=== PATIENT | male | born 1955 | race Caucasian/White ===

== ENCOUNTER 2017-04-23 09:32 | Observation (INO) ==
[2017-04-23] MEDS ORDERED: ASPIRIN 325 MG TABLET PO STA (09:56)
[2017-04-23] MEDS ORDERED: NITROGLYCERIN SL 0.4 MG TABLET SL PRN (09:56)
[2017-04-23] MEDS ORDERED: ONDANSETRON 4 MG/2 ML VIAL IV PRN ×2 (09:56→12:23)
[2017-04-23] MEDS ORDERED: MORPHINE 2 MG/1 ML SYRINGE IV PRN (09:56)
[2017-04-23] MEDS ORDERED: NITROGLYCERIN 2% OINT 1 INCH/GM PACK TOP STA (09:56)
[2017-04-23] MEDS ORDERED: ENOXAPARIN 100 MG/ML SYRINGE SUBCUT STA (09:56)
--- NOTE | 2017-04-23 10:00 | EKG Report ---
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
--- NOTE | 2017-04-23 10:02 | Emergency Department Note ---
Annie Wilder Mantricia, am scribing for, and in the presence of, Nabeel Granger MD 10:00. IBárbara James D, MD, personally performed the services described in this documentation, ascribed by Kennedy Valencia in my presence, and it is both accurate and complete . Arrival - Arrival Chief Complaint: Weakness Stated Complaint: fells tired all the time,has stints ED Nursing Triage Note: C/O FEELING TIRED FOR CLIVE TWO MONTHS. PT STATES HE FELT LIKE THIS WHEN HE HAD STENTS PLACED. PT DENIES CHEST PAIN. +SOB Mode of Arrival: Ambulatory Limitations: No Limitations Source: Patient Time Seen by Provider: 04/23/17 09:52 - History of Present Illness HPI Narrative: Pt is a 61 y/o white male arriving to ED with c/o fatigue and weakness that onset a month ago. He states that he has become more tired and SOB in the past few days. Pt denies chest pain but reports diaphoresis. 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 He has a PMHx of DM and HTN and has 8 stents placed. He reports no other complaints to ED. Onset (ago): month(s) Consistency: constant Allergies/Adverse Reactions: Allergies Allergy/AdvReac Type Severity Reaction Status Date / Time NEREYDA Inhibitors Allergy ANAPHYLAXIS Verified 04/23/17 09:44 Home Medications: Home Medications Medication Instructions Recorded Confirmed Type Aspirin EC Tab 81 mg PO DAILY 04/23/17 04/23/17 History Celecoxib 200 mg PO DAILY 04/23/17 04/23/17 History Cetirizine Tab [ZyrTEC Tab] 10 mg PO DAILY PRN 04/23/17 04/23/17 History Clopidogrel [Plavix] 75 mg PO DAILY 04/23/17 04/23/17 History Ferrous Sulfate 325 mg PO DAILY 04/23/17 04/23/17 History Hydrocodone/Acetaminophen [Lortab 1 each PO Q6H PRN 04/23/17 04/23/17 History 10-325 mg Tablet] Insulin Aspart Prot/Insuln Asp 90 unit SUBCUT QPM 04/23/17 04/23/17 History [NovoLOG Mix 70-30 FlexPen] Insulin Aspart Prot/Insuln Asp 100 unit SUBCUT QAM 04/23/17 04/23/17 History [NovoLOG Mix 70-30 FlexPen] Multivitamin [Multivitamins] 1 each PO DAILY 04/23/17 04/23/17 History PARoxetine [Paxil] 20 mg PO DAILY 04/23/17 04/23/17 History Pantoprazole Tab [Protonix Tab] 40 mg PO DAILY 04/23/17 04/23/17 History Solifenacin [Vesicare] 5 mg PO DAILY 04/23/17 04/23/17 History Tramadol HCl [Tramadol Tab] 50 mg PO Q6H PRN 04/23/17 04/23/17 History Valsartan 160 mg PO DAILY 04/23/17 04/23/17 History Review of System - Review of System 12 point system: reviewed and no additional remarkable complaints except as stated - Review of System Eyes: Absent: discharge, pain Cardiovascular: Present: dyspnea on exertion, other (fatigue). Absent: chest pain Gastrointestinal: Absent: abdominal pain, nausea, vomiting, diarrhea Musculoskeletal: Absent: arm pain, back pain, leg pain, neck pain Neurological: Present: weakness Medical,Surgical,& Family Hx - Medical History Cardio: History of: Hypertension, [place] Endocrine: History of: Diabetes Mellitus (IDDM) Musculoskeletal: History of: Musculoskeletal Problems (ARTHRITIS) - Surgical History Cardiac Surgeries: Sugical HX of: Cardiac Catheterization (WITH 8 STENTS) - Family History Family History: Reports;: Family Cancer, Family Diabetes, Family Heart Disease, Family Hypertension - Social History Smoking Status: Never smoker Frequency of Alcohol Use: None Type of Drug Use: None Exam Physical Examination: GENERAL: This is a well-nourished, well-developed male in no apparent distress. VITAL SIGNS: HEENT: Head is normocephalic and atraumatic. Pupils are equally round and reactive to light. Extraocular movement are intact. Oropharynx is benign with moist mucous membranes. NECK: Neck is soft and supple without tenderness. There are no masses. There is no lymphadenopathy. LUNGS: Lungs are clear to auscultation bilaterally. Chest rises symmetrically. There is no chest wall tenderness. CV: Heart is regular rate and rhythm without murmurs, rubs, or gallops. ABDOMEN: Abdomen is soft, non-tender to palpation. There are no abnormal masses palpated. There is no organomegaly. Bowel sounds are present and active. SKIN: Skin is warm and dry. No rash. EXTREMITIES: Patient has full range of motion without tenderness. There is no pedal edema. NEUROLOGIC: Awake, alert, and oriented x4. Cranial nerves II through XII are grossly intact. There are no motorsensory deficits. PSYCHIATRIC: Normal affect. Normal mood. Vital Signs: Vital Signs Temperature 97.4 F L 04/23/17 09:44 Pulse Rate 56 L 04/23/17 09:44 Respiratory Rate 18 04/23/17 10:24 Blood Pressure 125/65 04/23/17 09:44 O2 Sat by Pulse Oximetry 96 04/23/17 09:44 Course Course Narrative: Patient was given aspirin, Lovenox, morphine and Zofran in the emergency department. - Consultations Consultation #1: Discussed with Dr. Tompkins. Patient will be admitted to his service. Time: 11:42 Results - Labs CBC & BMP: 04/23/17 10:16 04/23/17 10:16 Lab Results: I have reviewed the patients labs Labs: Laboratory Tests 04/23/17 10:16 Troponin I < 0.015 - EKG EKG results: interpreted by ERMD - Impressions EKG: Sinus bradycardia with a rate of 52, left bundle branch block, no further interpretation possible. - Diagnostic Findings Procedure: Chest x-ray: image reviewed by me (Cardiomegaly, no increased pulmonary markings, no pleural effusions.) Disposition Clinical Impression: ACS (acute coronary syndrome), Diabetes mellitus, Essential hypertension, Coronary artery disease, Left bundle branch block, Fatigue Case discussed with: patient Disposition: Disch To Home/Self Care Condition: Stable
[2017-04-23 10:28] LABS: Basophils % 0.3 % (0.0-0.8); Eosinophils # 0.4 10*3/uL (0.0-0.87); Eosinophils % 3.5 % (0.00-10.9); Hematocrit 40.9 VOL% (42.0-52.0); Hemoglobin 13.5 GM/DL (14.0-18.0); Immature Granulocytes % 0.4 %; Immature Granulocytes Absolute 0.05 #; Lymphocytes # 2.1 10*3/uL (1.4-4.0); Lymphocytes % 18.2 % (21.2-54.2); Mean Corpuscular Hemoglobin 29 PG (27-34); Mean Corpuscular Volume 86.5 FL (87-102); Mean Platelet Volume 10.4 FL (9.6-12.0); Monocytes # 1.1 10*3/uL (0.11-0.8); Monocytes % 9.1 % (1.7-12.7); Neutrophils % 68.5 % (38.7-73.9); Platelet Count 356 T/CUMM (130-400); Red Blood Count 4.73 MC/CUMM (3.8-5.5); Red Cell Distribution Width 13.8 % (9.3-17.3); White Blood Count 11.7 T/CUMM (4-12)
[2017-04-23 10:39] LABS: PT Patient Result 10.3 SECS; Partial Thromboplastin Time 21.2 SECS (0-40)
[2017-04-23] MEDS ORDERED: NITROGLYCERIN 2% OINT 1 INCH/GM PACK TOP ONE (10:42)
[2017-04-23] MEDS ORDERED: ONDANSETRON 4 MG/2 ML VIAL ONE (10:42)
[2017-04-23] MEDS ORDERED: ENOXAPARIN 100 MG/ML SYRINGE SUBCUT ONE (10:42)
[2017-04-23] MEDS ORDERED: ENOXAPARIN 30 MG/0.3 ML SYRINGE ONE (10:43)
[2017-04-23] MEDS ORDERED: NITROGLYCERIN SL 0.4 MG TABLET SL ONE (10:43)
[2017-04-23] MEDS ORDERED: MORPHINE 2 MG/1 ML SYRINGE ONE (10:43)
[2017-04-23] MEDS ORDERED: ASPIRIN 325 MG TABLET ONE (10:43)
--- NOTE | 2017-04-23 10:43 | XRay Report ---
XR chest 2V Date: 04/23/2017 9:56 AM History: Chest pain Comparison: 04/29/2014 Technique: PA and lateral chest Findings: The heart is borderline in size with small cardiac fat pads. The lungs and mediastinum are stable in appearance. Minimal degenerative changes are noted. Impression: No acute cardiopulmonary pathology identified. PROCEDURE INTERPRETED AT [facility] DEPARTMENT OF RADIOLOGY Final Report Signed by: Dr. Opal Schaefer
[2017-04-23 10:58] LABS: Alanine Aminotransferase 37 U/L (16-61); Alkaline Phosphatase 67 U/L (45-117); Aspartate Amino Transferase 20 U/L (0-37); Bilirubin,Total < 0.39 MG/DL (0.2-1.0); Blood Urea Nitrogen 24 MG/DL (7-18); Calcium 9.7 MG/DL (8.5-10.1); Glucose 180 MG/DL (74-106); Magnesium 2.1 MG/DL (1.8-2.4); Osmolality,Calculated 283.7 MOS/KG (273-304); Potassium 4.8 MMOL/L (3.5-5.1); Sodium 138 MMOL/L (136-145); Total Protein 7.3 G/DL (6.4-8.3)
[2017-04-23] MEDS ORDERED: MAGNESIUM SULF RIDER 4 GM in PREMIX 1 EACH IV PRN (12:13)
[2017-04-23] MEDS ORDERED: MAGNESIUM SULF RIDER 2 GM in PREMIX 1 EACH IV PRN ×2 (12:13→16:42)
[2017-04-23] MEDS ORDERED: BISACODYL 5 MG TABLET PO PRN (12:23)
[2017-04-23] MEDS ORDERED: ZALEPLON 5 MG CAPSULE PO PRN (12:23)
[2017-04-23] MEDS ORDERED: ACETAMINOPHEN 325 MG TABLET PO PRN (12:23)
[2017-04-23 12:27] LABS: Apearance,Urine CLEAR (Clear); Bilirubin,Urine Negative (Negative); Blood, Urine Negative (Negative); Glucose,Urine (UA) 50 mg/dL (Negative); Hyaline Casts,Urine 1 /LPF (0-3); Ketones,Urine Negative (Negative); Mucus,Urine Few /LPF (Occasional); Nitrite,Urine Negative (Negative); Protein,Urine 30 MG/DL; RBC,Urine <1 /HPF (0-4); Urine Color Yellow (Yellow); Urine Specific Gravity 1.028 (1.001-1.035); Urine Urobilinogen < 2.0 EU/DL (0.2-1.0); WBC,Urine 1 /HPF (0-6)
[2017-04-23] MEDS ORDERED: POTASSIUM CHLORIDE 20 MEQ TABLET PO PRN (12:41)
[2017-04-23 12:46] LABS: Barbiturates Screen,Urine Negative (Negative); Benzodiazepines Screen,Urine Negative (Negative); Cannabinoid Screen,Urine Negative (Negative); Opiate Screen,Urine Positive (Negative); Phencyclidine Screen,Urine Negative (Negative)
--- NOTE | 2017-04-23 12:51 | Cardiology History & Physical ---
<Ayah Boateng E - Last Filed: 04/23/17 12:54> Assessment and Plan - Time spent with patient Time spent with patient: Greater than 30 minutes (due to assessment, plan, and documentation) (1) Dyspnea on exertion Status: Acute Assessment and plan: See plan of care listed below. Current Visit: Yes (2) Coronary artery disease Status: Chronic Assessment and plan: See plan of care listed below. Current Visit: Yes (3) Essential hypertension Status: Acute Assessment and plan: See plan of care listed below. Current Visit: Yes (4) Dyslipidemia Status: Chronic Assessment and plan: See plan of care listed below. Current Visit: Yes (5) Diabetes mellitus Status: Chronic Assessment and plan: See plan of care listed below. Current Visit: Yes (6) Left bundle branch block Status: Chronic Assessment and plan: See plan of care listed below. Current Visit: Yes (7) Obstructive sleep apnea Status: Chronic Assessment and plan: See plan of care listed below. Current Visit: Yes (8) GERD (gastroesophageal reflux disease) Status: Chronic Assessment and plan: See plan of care listed below. 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 Babb PCP: Dr. Ahmadi ALLERGIC TO NEREYDA INHIBITORS HISTORY: Mr. Viera is a 61 year old male with a history of coronary artery disease, hypertension, diabetes, hyper lipidemia, obstructive sleep apnea , chronic left bundle branch block, arthritis, gastroesophageal reflux disease, former tobacco use. He has three-vessel CAD and has undergone multiple stent procedures. He is status post proximal LAD stent, main trunk circumflex stent, OM1 and OM 2 stent at [employer] February 11, [address] Ndiaye. He is status post proximal RCA stent April 20, 2011. He is status post proximal LAD stent for in- stent restenosis on April 29, 2014. He is also status post mid circumflex stent and first diagonal angioplasty June 02, 2014. Last echocardiogram was January and revealed ejection fraction 60%, mildly dilated left atrium, moderate MR, moderate AI, mild TR, PAP 40 mmHg. SUMMARY: Mr. Viera presented to the emergency room today with complaints of progressive dyspnea on exertion. His , Latasha, is at the bedside and reports that this has been ongoing for at least 2-3 months. He tells me he gives out easily and his frequently short of breath at work. On Saturday, he did not have a nap during the day and subsequently had to take off work yesterday and slept off and on most of the day. His tells me that he has the same symptoms leading up to every heart cath where he has received stents. He denies any chest pain, palpitations, dizziness, lightheadedness, nausea, vomiting. He does admit to diaphoresis but reports that he sweats a lot on a regular basis. Initial troponin is negative. EKG shows chronic left bundle branch block. We will admit him to the telemetry floor for further evaluation and possible left heart catheterization. ASSESSMENT/PLAN: 1. DYSPNEA ON EXERTION - Patient presents with symptoms suspicious of angina, similar presentation to previous hospitalizations where he has required stent placement. Initial troponin is negative. EKG shows chronic LBBB. We will admit to telemetry unit. Dr. Mullins to follow with further plan and addendum. 2. CORONARY ARTERY DISEASE - He has three-vessel CAD and has undergone multiple stent procedures. He is status post proximal LAD stent, main trunk circumflex stent, OM1 and OM 2 stent at [employer] February 11, [address] Ndiaye. He is status post proximal RCA stent April 20, 2011. He is status post proximal LAD stent for in-stent restenosis on April 29, 2014. He is also status post mid circumflex stent and first diagonal angioplasty June 02, 2014. 3. HYPERTENSION - Currently well controlled. Will continue home medications, monitor, and adjust accordingly during hospitalization. 4. HYPERLIPIDEMIA - He was started on Crestor 40mg PO Daily at his last visit with Dr. Coronel. We will check lipid panel in the morning and continue lipid lowering agent. 5. DIABETES - Suspect this is uncontrolled. He admits his glucose has been running between the 200s-300s lately. Will check hemoglobin A1C. Start accuchecks ACHS with sliding scale insulin. 6. CHRONIC LEFT BUNDLE BRANCH BLOCK - Chronic. 7. OBSTRUCTIVE SLEEP APNEA - Continue CPAP while sleeping. 8. GERD - Continue PPI. 9. FATIGUE - Suspect this may be related to CAD. Will admit patient to telemetry for further evaluation. Home Medications Medication Instructions Recorded Confirmed Type Aspirin EC Tab 81 mg PO DAILY 04/23/17 04/23/17 History Celecoxib 200 mg PO DAILY 04/23/17 04/23/17 History Cetirizine Tab [ZyrTEC Tab] 10 mg PO DAILY PRN 04/23/17 04/23/17 History Clopidogrel [Plavix] 75 mg PO DAILY 04/23/17 04/23/17 History Ferrous Sulfate 325 mg PO DAILY 04/23/17 04/23/17 History Hydrocodone/Acetaminophen [Lortab 1 each PO Q6H PRN 04/23/17 04/23/17 History 10-325 mg Tablet] Insulin Aspart Prot/Insuln Asp 90 unit SUBCUT QPM 04/23/17 04/23/17 History [NovoLOG Mix 70-30 FlexPen] Insulin Aspart Prot/Insuln Asp 100 unit SUBCUT QAM 04/23/17 04/23/17 History [NovoLOG Mix 70-30 FlexPen] Multivitamin [Multivitamins] 1 each PO DAILY 04/23/17 04/23/17 History PARoxetine [Paxil] 20 mg PO DAILY 04/23/17 04/23/17 History Pantoprazole Tab [Protonix Tab] 40 mg PO DAILY 04/23/17 04/23/17 History Solifenacin [Vesicare] 5 mg PO DAILY 04/23/17 04/23/17 History Tramadol HCl [Tramadol Tab] 50 mg PO Q6H PRN 04/23/17 04/23/17 History Valsartan 160 mg PO DAILY 04/23/17 04/23/17 History Allergies Allergy/AdvReac Type Severity Reaction Status Date / Time NEREYDA Inhibitors Allergy ANAPHYLAXIS Verified 04/23/17 09:44 Review of systems: - Constitutional: Present: fatigue, As per HPI. Absent: anorexia, chills, daytime sleepiness, excessive sweating, fever(s), frequent falls, headache(s), increased appetite, lethargy, malaise, night sweats, stops breathing during sleep, weakness, weight gain, weight loss. - EENT Eyes: Present: As per HPI. Absent: blurry vision, diplopia, loss of vision Ears: Present: As per HPI. Absent: decreased hearing, ear discharge, ear pain Nose, mouth and throat: Present: As per HPI. Absent: dysphagia, epistaxis, headache(s), hoarseness, lip swelling, nasal congestion, neck mass, neck pain, sinus pressure, sore throat, throat swelling, tongue swelling, vertigo - Cardiovascular: Present: dyspnea, dyspnea on exertion, as per HPI. Absent: chest pain at rest, chest pain with activity, edema, claudication, diaphoresis, radiating jaw, neck or arm pain, lightheadedness, orthopnea, palpitations, PND - Respiratory: Present: dyspnea, dyspnea on exertion, as per HPI. Absent: cough , hemoptysis, wheezing, snoring, pain on inspiration - Gastrointestinal: Present: As per HPI. Absent: abdominal pain, bloating, change in bowel habits, constipation, diarrhea, heartburn, hematemesis, hematochezia, loose stools, melena, nausea, vomiting - Genitourinary: Present: As per HPI. Absent: difficulty urinating, dysuria, flank pain, hematuria, nocturia, urinary frequency, urinary incontinence - Musculoskeletal: Present: As per HPI. Absent: arthralgias, back pain, joint swelling, limited range of motion, muscle cramps, muscle weakness, myalgias - Neurological: Present: As per HPI. Absent: abnormal gait, abnormal speech, behavioral changes, confusion, convulsions, disequilibrium, dizziness, focal weakness, frequent falls, headache(s), memory loss, numbness, paresthesias, radicular pain, syncope, tremor(s) - Psychiatric: Present: As per HPI. Absent: anxiety, confusion, depression, panic attacks - Endocrine: Present: fatigue, As per HPI. Absent: cold intolerance, heat intolerance, polydipsia, polyphagia - Hematologic/Lymphatic: Present: As per HPI. Absent: easy bleeding, easy bruising, lymphadenopathy Medical,Surgical,& Family Hx - Medical History Cardio: History of: CAD, Hypertension, MD, Cardiovascular Problems (chronic LBBB ) Psychological: History of: Depression Endocrine: History of: Diabetes Mellitus (IDDM), Dyslipidemia Respiratory: History of: Obstructive Sleep Apnea Gastrointestinal: History of: GERD Musculoskeletal: History of: Musculoskeletal Problems (ARTHRITIS) - Surgical History Cardiac Surgeries: Sugical HX of: Cardiac Catheterization (WITH 8 STENTS) - Family History Family History: Reports;: Family Cancer, Family Diabetes, Family Heart Disease, Family Hypertension - Social History Smoking Status: Never smoker Frequency of Alcohol Use: None Type of Drug Use: None Marital Status: Lives With:: Spouse Functional capacity: independent ambulation Cardiology Physical Exam - Constitutional Vitals: Vital Signs Temp Pulse Resp BP Pulse Ox 97.4 F L 56 L 18 125/65 96 04/23/17 09:44 04/23/17 09:44 04/23/17 10:24 04/23/17 09:44 04/23/17 09:44 Intake and Output 04/22/17 04/23/17 04/23/17 22:59 06:59 14:59 Other: Weight 279 lb Patient Weight 04/24/17 06:59 Weight 279 lb Exam: General appearance: Pleasant and cooperative. Overweight, no acute distress. - Head Head exam: Present: normal inspection, normocephalic, atraumatic. Absent: hematoma, laceration - Eye Eye exam: Present: EOMI. Absent: conjunctival injection, nystagmus, periorbital swelling, scleral icterus, laceration to eyelids Pupils: Present: PERRL. Absent: constricted, dilated, fixed, irregular, unequal - ENT ENT exam: Present: normal exam, normal external ear exam - Neck Neck exam: Present: normal inspection. Absent: lymphadenopathy, meningismus, tenderness, thyromegaly - Respiratory Respiratory exam: Present: clear to auscultation bilaterally. Absent: accessory muscle use, chest wall tenderness - Cardiovascular Cardiovascular exam: Present: regular rate and rhythm. Absent: carotid bruit, gallop, JVD, rubs, murmur - GI/Abdominal GI/Abdominal exam: Present: normal bowel sounds, soft. Absent: distended, firm , guarding, hernia, mass, tenderness, rebound. - Extremities Exam Extremities exam: Present: normal inspection, normal capillary refill. Upper extremity pulses 2+. Lower extremity pulses 2+. Absent: calf tenderness, edema -Musculoskeletal Exam Musculoskeletal: Present: No Fluid Collection, No Pain, Normal Range of Motion - Back Exam Back exam: Present: normal inspection. Absent: muscle spasm, vertebral tenderness - Neurological Exam Neurological exam: Present: alert, oriented X3, grossly intact without resting or essential tremor - Psychiatric Psychiatric exam: Present: normal affect, normal mood - Skin Skin exam: Present: normal color, warm, dry, intact. Absent: cyanosis, diaphoretic, rash, urticaria Result/EKG - Labs CBC & BMP: 04/23/17 10:16 04/23/17 10:16 Lab Results: I have reviewed the past 24 hour labs Labs: Laboratory Results - last 24 hr 04/23/17 04/23/17 04/23/17 10:16 10:16 10:16 WBC RBC Hgb Hct MCV MCH MCHC RDW Plt Count MPV Neut % (Auto) Lymph % (Auto) Branch % (Auto) Eos % (Auto) Baso % (Auto) Neut # (Auto) Lymph # (Auto) Branch # (Auto) Eos # (Auto) Baso # (Auto) Immature Gran % Nucleated RBC % Immature Gran # Nucleated RBCs # INR 1.0 PT Patient/Control Mix 10.3 Circ Anticoag PTT 21.2 Sodium 138 Potassium 4.8 Chloride 105 Carbon Dioxide 26 Anion Gap 11.8 BUN 24 H Creatinine 1.00 GFR Calculation 112 BUN/Creatinine Ratio 24.00 H Glucose 180 H Calculated Osmolality 283.7 Calcium 9.7 Magnesium 2.1 Total Bilirubin < 0.39 AST 20 ALT 37 Alkaline Phosphatase 67 Troponin I Total Protein 7.3 Albumin 4.0 Globulin 3.3 Albumin/Globulin Ratio 1.2 Lipase 109.0 Urine Color Yellow Urine Appearance Clear Urine pH 5.0 Ur Specific Pointblank 1.028 Urine Protein 30 Urine Glucose (UA) 50 Urine Ketones Negative Urine Blood Negative Urine Nitrate Negative Urine Bilirubin Negative Urine Urobilinogen < 2.0 H Urine Leukocytes Negative Urine RBC <1 Urine WBC 1 Hyaline Casts 1 Urine Mucus Few Ur Culture Indicated? Not indicated 04/23/17 04/23/17 10:16 10:16 WBC 11.7 RBC 4.73 Hgb 13.5 L Hct 40.9 L MCV 86.5 L MCH 29 MCHC 33.0 RDW 13.8 Plt Count 356 MPV 10.4 Neut % (Auto) 68.5 Lymph % (Auto) 18.2 L Branch % (Auto) 9.1 Eos % (Auto) 3.5 Baso % (Auto) 0.3 Neut # (Auto) 8.0 H Lymph # (Auto) 2.1 Branch # (Auto) 1.1 H Eos # (Auto) 0.4 Baso # (Auto) 0.0 Immature Gran % 0.4 Nucleated RBC % 0.0 Immature Gran # 0.05 Nucleated RBCs # 0.00 INR PT Patient/Control Mix Circ Anticoag PTT Sodium Potassium Chloride Carbon Dioxide Anion Gap BUN Creatinine GFR Calculation BUN/Creatinine Ratio Glucose Calculated Osmolality Calcium Magnesium Total Bilirubin AST ALT Alkaline Phosphatase Troponin I < 0.015 Total Protein Albumin Globulin Albumin/Globulin Ratio Lipase Urine Color Urine Appearance Urine pH Ur Specific Pointblank Urine Protein Urine Glucose (UA) Urine Ketones Urine Blood Urine Nitrate Urine Bilirubin Urine Urobilinogen Urine Leukocytes Urine RBC Urine WBC Hyaline Casts Urine Mucus Ur Culture Indicated? - EKG EKG results: interpreted by me (chronic left bundle branch block) <French Mullins Cecilio - Last Filed: 04/23/17 16:42> History of Present Illness History of present illness: Mr. Viera is a 61 year old male who was admitted through the emergency room. I have also personally interviewed and examined this patient and discussed this case with Ayah Boateng NP. This patient's have progressive symptomatology similar to what he has had prior to his previous stenting. With his aggressive history of coronary artery disease and requiring intervention as our plans will be carried out heart catheterization tomorrow with possible PCI. I discussed cardiac catheterization with the patient and his reviewing the case procedure that would be carried out as well as the benefits options and risk. I discussed cardiac catheterization and percutaneous coronary intervention with the patient and available family. I reviewed with them the indications for the procedure and the basis of how the procedure would be carried out. I also reviewed with them the risk of the procedure which include but not necessarily limited to access site bleeding, bruising, pain, swelling or vascular injury that may require emergency vascular surgery, blood transfusion, or thrombin injection. Also discussed the possibility of stroke, myocardial infarction, arrhythmia which may require electrocardioversion, and the possibility of dye reaction that would require medical therapy. Also discussed the possibility of coronary artery injury, ruptured, closure or perforation that may require emergency bypass surgery. We also discussed the possibility of from a major complication. They voice understanding and agree to proceed. We will plan on carrying this out in the morning. Cardiology Physical Exam - Constitutional Vitals: Vital Signs Temp Pulse Resp BP Pulse Ox 97.3 F L 47 L 18 136/58 97 04/23/17 15:43 04/23/17 15:43 04/23/17 15:43 04/23/17 15:43 04/23/17 15:43 Intake and Output 04/23/17 04/23/17 04/23/17 07:59 15:59 23:59 Other: Weight 126.099 kg Patient Weight 04/23/17 23:59 Weight 126.099 kg Result/EKG - Labs CBC & BMP: 04/23/17 10:16 04/23/17 10:16 Labs: Laboratory Results - last 24 hr 04/23/17 04/23/17 04/23/17 10:16 10:16 10:16 WBC RBC Hgb Hct MCV MCH MCHC RDW Plt Count MPV Neut % (Auto) Lymph % (Auto) Branch % (Auto) Eos % (Auto) Baso % (Auto) Neut # (Auto) Lymph # (Auto) Branch # (Auto) Eos # (Auto) Baso # (Auto) Immature Gran % Nucleated RBC % Immature Gran # Nucleated RBCs # INR 1.0 PT Patient/Control Mix 10.3 Circ Anticoag PTT 21.2 Sodium 138 Potassium 4.8 Chloride 105 Carbon Dioxide 26 Anion Gap 11.8 BUN 24 H Creatinine 1.00 GFR Calculation 112 BUN/Creatinine Ratio 24.00 H Glucose 180 H Calculated Osmolality 283.7 Calcium 9.7 Magnesium 2.1 Total Bilirubin < 0.39 AST 20 ALT 37 Alkaline Phosphatase 67 Total Creatine Kinase CK-MB (CK-2) Troponin I Total Protein 7.3 Albumin 4.0 Globulin 3.3 Albumin/Globulin Ratio 1.2 Lipase 109.0 Urine Color Yellow Urine Appearance Clear Urine pH 5.0 Ur Specific Pointblank 1.028 Urine Protein 30 Urine Glucose (UA) 50 Urine Ketones Negative Urine Blood Negative Urine Nitrate Negative Urine Bilirubin Negative Urine Urobilinogen < 2.0 H Urine Leukocytes Negative Urine RBC <1 Urine WBC 1 Hyaline Casts 1 Urine Mucus Few Ur Culture Indicated? Not indicated Urine Opiates Screen Ur Barbiturates Screen Ur Phencyclidine Scrn U Amphetamine/Methamph U Benzodiazepines Scrn U Cocaine Metab Screen U Cannabinoids Screen 04/23/17 04/23/17 04/23/17 10:16 10:16 10:16 WBC 11.7 RBC 4.73 Hgb 13.5 L Hct 40.9 L MCV 86.5 L MCH 29 MCHC 33.0 RDW 13.8 Plt Count 356 MPV 10.4 Neut % (Auto) 68.5 Lymph % (Auto) 18.2 L Branch % (Auto) 9.1 Eos % (Auto) 3.5 Baso % (Auto) 0.3 Neut # (Auto) 8.0 H Lymph # (Auto) 2.1 Branch # (Auto) 1.1 H Eos # (Auto) 0.4 Baso # (Auto) 0.0 Immature Gran % 0.4 Nucleated RBC % 0.0 Immature Gran # 0.05 Nucleated RBCs # 0.00 INR PT Patient/Control Mix Circ Anticoag PTT Sodium Potassium Chloride Carbon Dioxide Anion Gap BUN Creatinine GFR Calculation BUN/Creatinine Ratio Glucose Calculated Osmolality Calcium Magnesium Total Bilirubin AST ALT Alkaline Phosphatase Total Creatine Kinase CK-MB (CK-2) Troponin I < 0.015 Total Protein Albumin Globulin Albumin/Globulin Ratio Lipase Urine Color Urine Appearance Urine pH Ur Specific Pointblank Urine Protein Urine Glucose (UA) Urine Ketones Urine Blood Urine Nitrate Urine Bilirubin Urine Urobilinogen Urine Leukocytes Urine RBC Urine WBC Hyaline Casts Urine Mucus Ur Culture Indicated? Urine Opiates Screen Positive H Ur Barbiturates Screen Negative Ur Phencyclidine Scrn Negative U Amphetamine/Methamph Negative U Benzodiazepines Scrn Negative U Cocaine Metab Screen Negative U Cannabinoids Screen Negative 04/23/17 10:16 WBC RBC Hgb Hct MCV MCH MCHC RDW Plt Count MPV Neut % (Auto) Lymph % (Auto) Branch % (Auto) Eos % (Auto) Baso % (Auto) Neut # (Auto) Lymph # (Auto) Branch # (Auto) Eos # (Auto) Baso # (Auto) Immature Gran % Nucleated RBC % Immature Gran # Nucleated RBCs # INR PT Patient/Control Mix Circ Anticoag PTT Sodium Potassium Chloride Carbon Dioxide Anion Gap BUN Creatinine GFR Calculation BUN/Creatinine Ratio Glucose Calculated Osmolality Calcium Magnesium Total Bilirubin AST ALT Alkaline Phosphatase Total Creatine Kinase 200 CK-MB (CK-2) 1.8 Troponin I < 0.015 Total Protein Albumin Globulin Albumin/Globulin Ratio Lipase Urine Color Urine Appearance Urine pH Ur Specific Pointblank Urine Protein Urine Glucose (UA) Urine Ketones Urine Blood Urine Nitrate Urine Bilirubin Urine Urobilinogen Urine Leukocytes Urine RBC Urine WBC Hyaline Casts Urine Mucus Ur Culture Indicated? Urine Opiates Screen Ur Barbiturates Screen Ur Phencyclidine Scrn U Amphetamine/Methamph U Benzodiazepines Scrn U Cocaine Metab Screen U Cannabinoids Screen
[2017-04-23 13:30] LABS: Troponin I Only < 0.015 NG/ML (0.00-0.045)
--- NOTE | 2017-04-23 13:50 | EKG Report ---
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
[2017-04-23] MEDS ORDERED: GLUCAGON 1 MG VIAL IM PRN (15:24)
[2017-04-23] MEDS ORDERED: DEXTROSE 50% 25 GM/50 ML VIAL IV PRN (15:24)
[2017-04-23] MEDS: PANTOPRAZOLE 40 MG TABLET PO SCH (15:49)
[2017-04-23] MEDS ORDERED: POTASSIUM CHLORIDE RIDER 10 MEQ in PREMIX 1 EACH IV PRN (16:42)
[2017-04-23] MEDS: INSULIN LISPRO 100 UNIT/ML SUBCUT SCH ×2 (18:33→22:08)
[2017-04-23 20:50] LABS: Troponin I Only < 0.015 NG/ML (0.00-0.045)
[2017-04-23] MEDS ORDERED: ROSUVASTATIN 20 MG TABLET PO SCH (21:00)
[2017-04-24 05:02] LABS: Basophils % 0.4 % (0.0-0.8); Eosinophils # 0.4 10*3/uL (0.0-0.87); Eosinophils % 3.6 % (0.00-10.9); Hematocrit 39.7 VOL% (42.0-52.0); Hemoglobin 12.9 GM/DL (14.0-18.0); Immature Granulocytes % 0.5 %; Immature Granulocytes Absolute 0.05 #; Lymphocytes # 2.3 10*3/uL (1.4-4.0); Lymphocytes % 20.8 % (21.2-54.2); Mean Corpuscular HGB Conc 32.5 GM/DL (32-36); Mean Corpuscular Hemoglobin 28 PG (27-34); Mean Corpuscular Volume 87.1 FL (87-102); Mean Platelet Volume 10.6 FL (9.6-12.0); Monocytes # 1.2 10*3/uL (0.11-0.8); Neutrophils % 63.7 % (38.7-73.9); Platelet Count 330 T/CUMM (130-400); Red Blood Count 4.56 MC/CUMM (3.8-5.5); Red Cell Distribution Width 13.9 % (9.3-17.3)
[2017-04-24 05:35] LABS: Albumin 3.6 G/DL (3.4-5.0); Bilirubin,Total 0.4 MG/DL (0.2-1.0); Calcium 8.8 MG/DL (8.5-10.1); Osmolality,Calculated 283.5 MOS/KG (273-304); Potassium 4.2 MMOL/L (3.5-5.1); Risk Ratio 4.47; Total Protein 6.7 G/DL (6.4-8.3); VLDL CHOLESTEROL 62.2 MG/DL
[2017-04-24 05:42] LABS: Troponin I Only < 0.015 NG/ML (0.00-0.045)
[2017-04-24] MEDS ORDERED: diphenhydrAMINE CAP 25 MG CAPSULE PO ONE (06:00)
[2017-04-24] MEDS ORDERED: SODIUM CHLORIDE 0.9% 1,000 ML IV SCH (06:00)
[2017-04-24] MEDS ORDERED: DIAZEPAM 5 MG TABLET PO ONE (06:00)
--- NOTE | 2017-04-24 06:22 | EKG Report ---
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
--- NOTE | 2017-04-24 06:23 | Cardiology Progress Note ---
Assessment and Plan (1) Bradycardia Status: Acute Assessment and plan: Now not sure the duration of his bradycardia but certainly question whether this may contribute to his fatigue and dyspnea on exertion. He is not on medications to slow his heart rates down. This may need further evaluation. Current Visit: Yes (2) Essential hypertension Status: Acute Current Visit: Yes (3) Coronary artery disease Status: Chronic Assessment and plan: Patient has had multiple stents carried out previously. He is now having symptoms of fatigue and dyspnea that are consistent with prior symptomatology prior to interventions. Current Visit: Yes (4) Left bundle branch block Status: Chronic Assessment and plan: This is chronic. Current Visit: Yes (5) Fatigue Status: Acute Assessment and plan: Fatigue and dyspnea that now developed and are consistent with his symptomatology prior to previous interventions of his coronary arteries. He is for catheterization possible intervention today. Current Visit: Yes (6) Dyspnea on exertion Status: Acute Assessment and plan: This is consistent with prior symptomatology of angina and symptomatology that has had previous to other interventions. Current Visit: Yes (7) Dyslipidemia Status: Chronic Assessment and plan: His lipids are borderline. After catheterization depending what we find we may need to increase his medications. Current Visit: Yes (8) Obstructive sleep apnea Status: Chronic Assessment and plan: Patient is on CPAP. Current Visit: Yes Cardiology - PN: Subj Interval history: The patient is doing well this morning. He had a good night. He denies any chest pain or shortness of breath today. His laboratory is stable his chemistry stable. His cardiac enzymes have been nondetectable troponins. His CPKs and MB fractions are unremarkable. Telemetry reveals sinus rhythm but remains bradycardic. He is not on beta-steffany or calcium channel steffany or other medications to slow his heart rates. Need to check his thyroids. Again I have discussed the patient's cardiac catheterization and possible intervention with he and his . Reviewed the indication procedure be carried out the risk. They voiced understanding we will proceed this morning. Exam (Progress Note) - Constitutional Vitals: Period Temp Pulse Resp BP Sys/Sherman Pulse Ox Last 24 Hr 97.3 F-98.1 F 47-60 16-20 116-137/58-71 93-98 Exam: General appearance: Obese, no acute distress HEENT exam: normal inspection, atraumatic Neck exam: normal inspection no JVD. No carotid bruit. Trachea is in midline Respiratory/lungs exam: clear to auscultation bilaterally good air movement. Cardiovascular exam: regular rhythm but bradycardic, no murmur or gallop or rub. No precordial lift. Chest wall exam: nontender GI/Abdominal exam: normal bowel sounds, soft, nontender, no abdominal bruits or pulsatile masses. Extremeties/musculoskeletal: normal inspection without edema or cyanosis. Neurological exam: alert, oriented X3, no focal deficits Psychiatric exam: normal affect, normal mood. Cognitive function is grossly normal. Skin exam: normal color, warm Result/EKG - Labs CBC & BMP: 04/24/17 04:15 04/24/17 04:15 Lab Results: I have reviewed the past 24 hour labs Labs: Laboratory Results - last 24 hr 04/23/17 04/23/17 04/23/17 10:16 10:16 10:16 WBC RBC Hgb Hct MCV MCH MCHC RDW Plt Count MPV Neut % (Auto) Lymph % (Auto) [place] % (Auto) Eos % (Auto) Baso % (Auto) Neut # (Auto) Lymph # (Auto) [place] # (Auto) Eos # (Auto) Baso # (Auto) Immature Gran % Nucleated RBC % Immature Gran # Nucleated RBCs # INR 1.0 PT Patient/Control Mix 10.3 Circ Anticoag PTT 21.2 Sodium 138 Potassium 4.8 Chloride 105 Carbon Dioxide 26 Anion Gap 11.8 BUN 24 H Creatinine 1.00 GFR Calculation 112 BUN/Creatinine Ratio 24.00 H Glucose 180 H POC Glucose Hemoglobin A1c Calculated Osmolality 283.7 Calcium 9.7 Magnesium 2.1 Total Bilirubin < 0.39 AST 20 ALT 37 Alkaline Phosphatase 67 Total Creatine Kinase CK-MB (CK-2) Troponin I Total Protein 7.3 Albumin 4.0 Globulin 3.3 Albumin/Globulin Ratio 1.2 Triglycerides Cholesterol LDL Cholesterol VLDL Cholesterol HDL Cholesterol Heart Disease Risk Ratio Lipase 109.0 Urine Color Yellow Urine Appearance Clear Urine pH 5.0 Ur Specific [place] 1.028 Urine Protein 30 Urine Glucose (UA) 50 Urine Ketones Negative Urine Blood Negative Urine Nitrate Negative Urine Bilirubin Negative Urine Urobilinogen < 2.0 H Urine Leukocytes Negative Urine RBC <1 Urine WBC 1 Hyaline Casts 1 Urine Mucus Few Ur Culture Indicated? Not indicated Urine Opiates Screen Ur Barbiturates Screen Ur Phencyclidine Scrn U Amphetamine/Methamph U Benzodiazepines Scrn U Cocaine Metab Screen U Cannabinoids Screen 04/23/17 04/23/17 04/23/17 10:16 10:16 10:16 WBC 11.7 RBC 4.73 Hgb 13.5 L Hct 40.9 L MCV 86.5 L MCH 29 MCHC 33.0 RDW 13.8 Plt Count 356 MPV 10.4 Neut % (Auto) 68.5 Lymph % (Auto) 18.2 L [place] % (Auto) 9.1 Eos % (Auto) 3.5 Baso % (Auto) 0.3 Neut # (Auto) 8.0 H Lymph # (Auto) 2.1 [place] # (Auto) 1.1 H Eos # (Auto) 0.4 Baso # (Auto) 0.0 Immature Gran % 0.4 Nucleated RBC % 0.0 Immature Gran # 0.05 Nucleated RBCs # 0.00 INR PT Patient/Control Mix Circ Anticoag PTT Sodium Potassium Chloride Carbon Dioxide Anion Gap BUN Creatinine GFR Calculation BUN/Creatinine Ratio Glucose POC Glucose Hemoglobin A1c Calculated Osmolality Calcium Magnesium Total Bilirubin AST ALT Alkaline Phosphatase Total Creatine Kinase CK-MB (CK-2) Troponin I < 0.015 Total Protein Albumin Globulin Albumin/Globulin Ratio Triglycerides Cholesterol LDL Cholesterol VLDL Cholesterol HDL Cholesterol Heart Disease Risk Ratio Lipase Urine Color Urine Appearance Urine pH Ur Specific [place] Urine Protein Urine Glucose (UA) Urine Ketones Urine Blood Urine Nitrate Urine Bilirubin Urine Urobilinogen Urine Leukocytes Urine RBC Urine WBC Hyaline Casts Urine Mucus Ur Culture Indicated? Urine Opiates Screen Positive H Ur Barbiturates Screen Negative Ur Phencyclidine Scrn Negative U Amphetamine/Methamph Negative U Benzodiazepines Scrn Negative U Cocaine Metab Screen Negative U Cannabinoids Screen Negative 04/23/17 04/23/17 04/23/17 10:16 13:06 17:25 WBC RBC Hgb Hct MCV MCH MCHC RDW Plt Count MPV Neut % (Auto) Lymph % (Auto) [place] % (Auto) Eos % (Auto) Baso % (Auto) Neut # (Auto) Lymph # (Auto) [place] # (Auto) Eos # (Auto) Baso # (Auto) Immature Gran % Nucleated RBC % Immature Gran # Nucleated RBCs # INR PT Patient/Control Mix Circ Anticoag PTT Sodium Potassium Chloride Carbon Dioxide Anion Gap BUN Creatinine GFR Calculation BUN/Creatinine Ratio Glucose POC Glucose 138 H 137 H Hemoglobin A1c Calculated Osmolality Calcium Magnesium Total Bilirubin AST ALT Alkaline Phosphatase Total Creatine Kinase 200 CK-MB (CK-2) 1.8 Troponin I < 0.015 Total Protein Albumin Globulin Albumin/Globulin Ratio Triglycerides Cholesterol LDL Cholesterol VLDL Cholesterol HDL Cholesterol Heart Disease Risk Ratio Lipase Urine Color Urine Appearance Urine pH Ur Specific [place] Urine Protein Urine Glucose (UA) Urine Ketones Urine Blood Urine Nitrate Urine Bilirubin Urine Urobilinogen Urine Leukocytes Urine RBC Urine WBC Hyaline Casts Urine Mucus Ur Culture Indicated? Urine Opiates Screen Ur Barbiturates Screen Ur Phencyclidine Scrn U Amphetamine/Methamph U Benzodiazepines Scrn U Cocaine Metab Screen U Cannabinoids Screen 04/23/17 04/23/17 04/23/17 20:10 20:27 Unknown WBC RBC Hgb Hct MCV MCH MCHC RDW Plt Count MPV Neut % (Auto) Lymph % (Auto) [place] % (Auto) Eos % (Auto) Baso % (Auto) Neut # (Auto) Lymph # (Auto) [place] # (Auto) Eos # (Auto) Baso # (Auto) Immature Gran % Nucleated RBC % Immature Gran # Nucleated RBCs # INR PT Patient/Control Mix Circ Anticoag PTT Sodium Potassium Chloride Carbon Dioxide Anion Gap BUN Creatinine GFR Calculation BUN/Creatinine Ratio Glucose POC Glucose 184 H Hemoglobin A1c 10.8 H Calculated Osmolality Calcium Magnesium Total Bilirubin AST ALT Alkaline Phosphatase Total Creatine Kinase 154 D CK-MB (CK-2) 1.6 Troponin I < 0.015 Total Protein Albumin Globulin Albumin/Globulin Ratio Triglycerides Cholesterol LDL Cholesterol VLDL Cholesterol HDL Cholesterol Heart Disease Risk Ratio Lipase Urine Color Urine Appearance Urine pH Ur Specific [place] Urine Protein Urine Glucose (UA) Urine Ketones Urine Blood Urine Nitrate Urine Bilirubin Urine Urobilinogen Urine Leukocytes Urine RBC Urine WBC Hyaline Casts Urine Mucus Ur Culture Indicated? Urine Opiates Screen Ur Barbiturates Screen Ur Phencyclidine Scrn U Amphetamine/Methamph U Benzodiazepines Scrn U Cocaine Metab Screen U Cannabinoids Screen 04/24/17 04/24/17 04/24/17 04:15 04:15 04:15 WBC 11.0 RBC 4.56 Hgb 12.9 L Hct 39.7 L MCV 87.1 MCH 28 MCHC 32.5 RDW 13.9 Plt Count 330 MPV 10.6 Neut % (Auto) 63.7 Lymph % (Auto) 20.8 L [place] % (Auto) 11.0 Eos % (Auto) 3.6 Baso % (Auto) 0.4 Neut # (Auto) 7.0 Lymph # (Auto) 2.3 [place] # (Auto) 1.2 H Eos # (Auto) 0.4 Baso # (Auto) 0.0 Immature Gran % 0.5 Nucleated RBC % 0.0 Immature Gran # 0.05 Nucleated RBCs # 0.00 INR PT Patient/Control Mix Circ Anticoag PTT Sodium 139 Potassium 4.2 Chloride 103 Carbon Dioxide 28 Anion Gap 12.2 BUN 21 H Creatinine 1.00 GFR Calculation 112 BUN/Creatinine Ratio 21.00 H Glucose 171 H POC Glucose Hemoglobin A1c Calculated Osmolality 283.5 Calcium 8.8 Magnesium Total Bilirubin 0.40 AST 23 ALT 36 Alkaline Phosphatase 60 Total Creatine Kinase 178 CK-MB (CK-2) 2.1 Troponin I < 0.015 Total Protein 6.7 Albumin 3.6 Globulin 3.1 Albumin/Globulin Ratio 1.1 Triglycerides 311 H Cholesterol 134 LDL Cholesterol 78.0 VLDL Cholesterol 62.2 HDL Cholesterol 30 L Heart Disease Risk Ratio 4.47 Lipase Urine Color Urine Appearance Urine pH Ur Specific [place] Urine Protein Urine Glucose (UA) Urine Ketones Urine Blood Urine Nitrate Urine Bilirubin Urine Urobilinogen Urine Leukocytes Urine RBC Urine WBC Hyaline Casts Urine Mucus Ur Culture Indicated? Urine Opiates Screen Ur Barbiturates Screen Ur Phencyclidine Scrn U Amphetamine/Methamph U Benzodiazepines Scrn U Cocaine Metab Screen U Cannabinoids Screen - Impressions Impressions: Telemetry sinus bradycardia. ECG with sinus rhythm/sinus bradycardia with left bundle branch block.
--- NOTE | 2017-04-24 06:32 | History and Physical Update ---
Sedation H&P Update - History and Physical H&P was reviewed, the patient examined and there: are no changes in the patients condition since last H&P was completed. - Dictation Physical: refer to H&P completed by admitting physician - Physical Exam Mental Status: alert and oriented Heart: regular rate and rhythm Lung: clear to auscultation Abdomen: within normal limits Vitals: within normal limits History and Physical Changes: None - Sedation Plan for Sedation: moderate Patient Consent: Procedure disscussed with patient and patinet has consented., Risks and benefits were discussed with patient,including infection,, bleeding, injury to surrounding structures, seizure, temporary nerve, Patient understands and accepts potential risks/benefits and agrees to, proceed. ASA Class: III Airway Assessment: Class III: Soft palate, base of uvula visible
[2017-04-24 06:47] LABS: Free T4 (Free Thyroxine) 0.8 NG/DL (0.76-1.46); Thyroid Stimulating Hormone 4.3 uIU/ml (0.358-3.74)
[2017-04-24] MEDS: PANTOPRAZOLE 40 MG TABLET PO SCH ×2 (07:02→17:35)
[2017-04-24] MEDS ORDERED: MIDAZOLAM 2 MG/2 ML VIAL ONE (07:24)
[2017-04-24] MEDS ORDERED: fentaNYL 100 MCG/2 ML VIAL ONE (07:24)
[2017-04-24] MEDS ORDERED: LIDOCAINE 1% 20 ML VIAL ONE (07:26)
--- NOTE | 2017-04-24 07:55 | Operative Note ---
Date of procedure: 04/24/17 Procedure Preformed: Left heart catheterization with right and left coronary angiography. Surgeon / Physician: French Mullins Horse Buyer: Denisha Scott Post-op diagnosis: same (Fatigue with history of coronary artery disease with patent coronary arteries and stents.) Findings: Patent coronary arteries and stents. Specimens: none sent Estimated blood loss: minimal Condition: stable Anesthesia: local, conscious sedation Disposition: floor
--- NOTE | 2017-04-24 08:02 | Cardiac Catheterization ---
Date of Procedure:: 04/24/17 Pre-op Diagnosis: Patient coronary disease now with fatigue symptoms similar to pre-stenting and intervention. Post-op diagnosis: same (Fatigue with history of coronary artery disease with patent coronary arteries and stents.) Procedure: LEFT HEART CATHERIZATION History: 61-year-old man who has a history of having coronary disease and multiple stents placed. Typical his symptomatology is that of fatigability and dyspnea on exertion as well as occasional angina. He presented having progressive fatigability and dyspnea for the last several weeks. Since this is his anginal equivalent cardiac catheterization carried out. Pre-Op diagnosis: Known coronary disease with prior intervention and he is anginal equivalent symptomatology. Postoperative diagnosis: Patent coronary arteries and stents. Do not see etiology from a coronary artery disease standpoint to account for symptomatology. Procedures: 1. Left heart catheterization. 2. Left ventricular angiogram. 3. Selective left and right coronary angiograms. 4. Right common femoral artery angiogram with Angio-Seal hemostasis. Equipment: 6 [place]ic arterial sheath, 6 Icelandic diagnostic pigtail catheter, JL4 and JR4 diagnostic catheters. A 6 [place]ic Angio-Seal hemostatic device. Medications: Preoperative Benadryl and Valium given by mouth. Lidocaine 1% local anesthesia 10 mls administered by myself. Intraprocedure patient received Versed 2 mgs IVP, fentanyl 100 mcg IVP. Complications: None immediate. Contrast: Omnipaque 108 milliliters. Description of procedure: After informed consent the patient was given preoperative medications and brought to the catheterization laboratory where their right groin was prepped and draped in usual fashion. IV sedation was then obtained after which local anesthesia was administered at the right groin over the right common femoral artery. Using modified Seldinger technique the right common femoral artery was cannulated with 6 [place] arterial sheath placed. The pigtail catheter was then advanced through the sheath in a retrograde approach through the aorta to the aortic valve. The catheter was advanced through the aortic valve where left ventricular pressures were measured. The catheter was then pulled back into the aortic root and pressures measured. The catheter was then advanced across the aortic valve into the left ventricle where left ventricular angiogram was obtained in the right anterior oblique view. The pigtail catheter was then removed. The JL4 diagnostic coronary catheter was then advanced through the sheath in a retrograde approach and used to cannulate the left coronary artery of which angiograms were obtained in multiple projections. This catheter was then removed. The JR 4 diagnostic coronary catheter was then advanced retrograde through the aorta and used to cannulate the right coronary artery of which angiograms were obtained in multiple projections. Angiograms were then reviewed. The right coronary catheter was pulled back into the sheath where a right common femoral artery angiogram was obtained with Angio-Seal hemostasis then obtained of this vessel. There were no immediate complications. Hemodynamic data: LV 126/27 , EDP 31 ; AO root 126/63 , mean 83 . Left ventricular angiogram: Left ventricle is normal size with ejection fraction around 50% with some anterior wall hypokinesis. There is no significant mitral valve regurgitation noted. Left main coronary artery angiogram: Left main coronary is widely patent. Bifurcates LAD and circumflex arteries. Left anterior descending artery angiogram: The LAD is medium large size vessel proximally. It extends to the posterior apical region. The first diagonal branch is a small medium caliber vessel with small second diagonal branch is small medium caliber third diagonal branch. The LAD mid stent is widely patent. There is otherwise diffuse luminal irregularities with less than 20% stenosis. The first diagonal may have 50% ostial stenosis. Circumflex artery angiogram: Circumflex arteries a medium large size vessel. The first obtuse marginal branch is a medium caliber long vessel. Second obtuse marginal branch is a terminal branch and is medium caliber. There are stents noted in the mid circumflex artery prior to the takeoff the first obtuse marginal branch with stents extending into the proximal first obtuse marginal branch and in the circumflex artery past this takeoff. The stents are patent. There is less than 20% stenosis in the circumflex artery proper obtuse marginal branches. Right coronary artery angiogram: RCA is a medium large size vessel and dominant. What is the acute marginal branch is a medium caliber vessel long covering a large area of the distal posterior ventricular wall. The true PDA is small caliber and short. Posterior lateral branches beyond this are small- caliber vessels with a small caliber AV node artery. There is diffuse luminal irregularities. The proximal RCA stent is patent. Mid vessel there is luminal irregularities less than 40% stenosis. The distal RCA is widely patent. Right common femoral artery angiogram: Right comfort is widely patent as is the proximal portion of superficial coronary profundus branch. Successful Angio- Seal hemostasis. Impression: 1. Left ventricle is normal size with ejection of 50% with some anterior wall hypokinesis. 2. LVEDP is severely elevated. 3. There is no gradient across the aortic valve. 4. No sent mitral valve regurgitation noted. 5. Left main coronary is widely patent. 6. LAD has diffuse luminal irregularities less than 20% stenosis with the first diagonal having ostial 50% stenosis. Mid LAD stent is patent. 7. Circumflex artery is nondominant with diffuse luminal irregularities with mid 20% stenosis. The stents on the surface are widely patent. 8. RCA is dominant vessel with a proximal stent widely patent. Less than 40% mid stenosis. 9. Right comfort is widely patent with successful Angio-Seal hemostasis. Discussion: Patient post procedure will be monitored. Patient is to continue his risk factor modification look for other etiologies of dyspnea. Implants: None Anesthesia: local, moderate conscious sedation Surgeon / Physician: French Mullins Construction Job Titles: other (Denisha Scott RN) Estimated blood loss: minimal Specimens: none sent Condition: stable Disposition: floor - Medications / Follow-up
[2017-04-24] MEDS ORDERED: CLOPIDOGREL 75 MG TABLET PO SCH (09:00)
[2017-04-24] MEDS ORDERED: PARoxetine 20 MG TABLET PO SCH (09:00)
[2017-04-24] MEDS ORDERED: SOLIFENACIN 5 MG TABLET PO SCH (09:00)
[2017-04-24] MEDS ORDERED: ASPIRIN EC 81 MG TABLET PO SCH (09:00)
[2017-04-24] MEDS ORDERED: FERROUS SULFATE 325 MG TABLET PO SCH (09:00)
[2017-04-24] MEDS ORDERED: CELECOXIB 200 MG CAPSULE PO SCH (09:00)
[2017-04-24] MEDS ORDERED: MULTIVITAMIN (CENTRUM) TABLET PO SCH (09:00)
[2017-04-24] MEDS ORDERED: VALSARTAN 160 MG TABLET PO SCH (09:00)
--- NOTE | 2017-04-24 10:40 | Discharge Summary ---
<Yumi Kennedy - Last Filed: 04/24/17 14:13> Hospital Course - Hospital Course Hospital Course: Recovery Assistant: Dr. Coronel PCP: Dr. Kai Ernandez Patient is admitted through the emergency room with complaint of fatigue and malaise and shortness of breath that he felt was similar to what it had prior to stenting of his coronary arteries. His cardiac enzymes were nondetectable troponins. His ECG without acute changes but with sinus rhythm with bradycardia with heart rates in the low 50s and upper 40s. He has a chronic left bundle branch block. The patient underwent cardiac catheterization with the finding that his stents were widely patent. His ejection fraction around 50%. No specific abnormalities to account for his symptomatology. His LVEDP was moderately severely elevated. The patient is H&H was slightly diminished but in reviewing prior H&H it is unchanged. He his TSH was mildly increased but his T4 was normal. His chemistries were fairly unremarkable. He is creatinine was stable. His BUN was up a little bit. His lipids are borderline. His urinalysis did not reveal any abnormalities. He is done well post catheterization without complaints or issues. His groin is stable. Bedrest is up and groin has remained stable post ambulation. We reviewed his catheterization findings and the recommendation he follow-up with Dr. Ahmadi and Dr. Coronel. He needs a special follow-up for his dyspnea fatigue as well as his elevated LVEDP. Follow with Dr. Coronel in 3 weeks. Patient will need to have 48 hour outpatient Holter. He has been instructed to pick this up one week prior to his follow up appointment with rob. Discharge instructions have been reviewed with patient. He verbalized understanding. Diagnosis - Discharge Diagnosis (1) Bradycardia Status: Acute (2) Dyspnea on exertion Status: Acute (3) Essential hypertension Status: Chronic (4) Fatigue Status: Acute (5) Coronary artery disease Status: Chronic (6) Dyslipidemia Status: Chronic (7) Left bundle branch block Status: Chronic (8) Obstructive sleep apnea Status: Chronic Specialty Discharge - Follow Up or Referrals Follow up with: Kai Ernandez MD [Physician] - 2 Weeks (Follow-up 2 weeks for slightly elevated TSH in dyspnea and fatigue.) Andre Coronel MD [Physician] - (Follow with Dr. Coronel in 3 weeks. Have patient will need outpatient Holter for 48 hours in our office [address] Coronel) Discharge Plan - Discharge Data Disposition: Disch To Home/Self Care Condition at Discharge: Stable Discharge Diet: diabetic diet Hygiene: no restrictions, may shower Weight Bearing at Discharge: full weight bearing Driving: not for Contact your physician if you experience:: fever over 101, Redness or swelling, Nausea/Vomiting, Shortness of breath, Bleeding, pain uncontrolled by pain medications - Discharge Medications Continue Cetirizine Tab [ZyrTEC Tab] 10 mg PO DAILY PRN PRN Reason: Sinus Symptoms Clopidogrel [Plavix] 75 mg PO DAILY Ferrous Sulfate 325 mg PO DAILY Hydrocodone/Acetaminophen [Lortab 10-325 mg Tablet] 1 each PO Q6H PRN PRN Reason: Pain Insulin Aspart Prot/Insuln Asp [NovoLOG Mix 70-30 FlexPen] 100 unit SUBCUT QAM Multivitamin [Multivitamins] 1 each PO DAILY Pantoprazole Tab [Protonix Tab] 40 mg PO DAILY Solifenacin [Vesicare] 5 mg PO DAILY Tramadol HCl [Tramadol Tab] 50 mg PO Q6H PRN PRN Reason: Pain Valsartan 160 mg PO DAILY Rosuvastatin Calcium 40 mg PO BEDTIME Aspirin EC Tab 81 mg PO DAILY Celecoxib 200 mg PO DAILY Insulin Aspart Prot/Insuln Asp [NovoLOG Mix 70-30 FlexPen] 90 unit SUBCUT QPM PARoxetine [Paxil] 20 mg PO DAILY - Follow Up or Referral Follow Up: Kai Ernandez MD [Physician] - 2 Weeks (Follow-up 2 weeks for slightly elevated TSH in dyspnea and fatigue.) Andre Coronel MD [Physician] - (Follow with Dr. Coronel in 3 weeks. Have patient will need outpatient Holter for 48 hours in our office [address] Coronel) - Forms/Instructions Exam - Constitutional Vitals: Period Temp Pulse Resp BP Sys/Sherman Pulse Ox Last 24 Hr 96.7 F-98.1 F 47-94 14-20 114-139/58-73 91-98 Discharge Results Procedures and tests throughout hospitalization: Pending Orders 04/24/17 07:18 CL heart Routine Labs on day of discharge: Labs from last 24 hours 04/24/17 04/24/17 04/24/17 11:11 07:11 04:15 WBC RBC Hgb Hct MCV MCH MCHC RDW Plt Count MPV Neut % (Auto) Lymph % (Auto) [place] % (Auto) Eos % (Auto) Baso % (Auto) Neut # (Auto) Lymph # (Auto) [place] # (Auto) Eos # (Auto) Baso # (Auto) Immature Gran % Nucleated RBC % Immature Gran # Nucleated RBCs # Sodium 139 Potassium 4.2 Chloride 103 Carbon Dioxide 28 Anion Gap 12.2 BUN 21 H Creatinine 1.00 GFR Calculation 112 BUN/Creatinine Ratio 21.00 H Glucose 171 H POC Glucose 289 H 201 H Hemoglobin A1c Calculated Osmolality 283.5 Calcium 8.8 Total Bilirubin 0.40 AST 23 ALT 36 Alkaline Phosphatase 60 Total Creatine Kinase CK-MB (CK-2) Troponin I Total Protein 6.7 Albumin 3.6 Globulin 3.1 Albumin/Globulin Ratio 1.1 Triglycerides 311 H Cholesterol 134 LDL Cholesterol 78.0 VLDL Cholesterol 62.2 HDL Cholesterol 30 L Heart Disease Risk Ratio 4.47 Free T4 TSH 3rd Generation 04/24/17 04/24/17 04/24/17 04:15 04:15 04:13 WBC 11.0 RBC 4.56 Hgb 12.9 L Hct 39.7 L MCV 87.1 MCH 28 MCHC 32.5 RDW 13.9 Plt Count 330 MPV 10.6 Neut % (Auto) 63.7 Lymph % (Auto) 20.8 L [place] % (Auto) 11.0 Eos % (Auto) 3.6 Baso % (Auto) 0.4 Neut # (Auto) 7.0 Lymph # (Auto) 2.3 [place] # (Auto) 1.2 H Eos # (Auto) 0.4 Baso # (Auto) 0.0 Immature Gran % 0.5 Nucleated RBC % 0.0 Immature Gran # 0.05 Nucleated RBCs # 0.00 Sodium Potassium Chloride Carbon Dioxide Anion Gap BUN Creatinine GFR Calculation BUN/Creatinine Ratio Glucose POC Glucose Hemoglobin A1c Calculated Osmolality Calcium Total Bilirubin AST ALT Alkaline Phosphatase Total Creatine Kinase 178 CK-MB (CK-2) 2.1 Troponin I < 0.015 Total Protein Albumin Globulin Albumin/Globulin Ratio Triglycerides Cholesterol LDL Cholesterol VLDL Cholesterol HDL Cholesterol Heart Disease Risk Ratio Free T4 0.80 TSH 3rd Generation 4.300 H 04/23/17 04/23/17 04/23/17 Unknown 20:27 20:10 WBC RBC Hgb Hct MCV MCH MCHC RDW Plt Count MPV Neut % (Auto) Lymph % (Auto) [place] % (Auto) Eos % (Auto) Baso % (Auto) Neut # (Auto) Lymph # (Auto) [place] # (Auto) Eos # (Auto) Baso # (Auto) Immature Gran % Nucleated RBC % Immature Gran # Nucleated RBCs # Sodium Potassium Chloride Carbon Dioxide Anion Gap BUN Creatinine GFR Calculation BUN/Creatinine Ratio Glucose POC Glucose 184 H Hemoglobin A1c 10.8 H Calculated Osmolality Calcium Total Bilirubin AST ALT Alkaline Phosphatase Total Creatine Kinase 154 D CK-MB (CK-2) 1.6 Troponin I < 0.015 Total Protein Albumin Globulin Albumin/Globulin Ratio Triglycerides Cholesterol LDL Cholesterol VLDL Cholesterol HDL Cholesterol Heart Disease Risk Ratio Free T4 TSH 3rd Generation 04/23/17 04/23/17 17:25 13:06 WBC RBC Hgb Hct MCV MCH MCHC RDW Plt Count MPV Neut % (Auto) Lymph % (Auto) [place] % (Auto) Eos % (Auto) Baso % (Auto) Neut # (Auto) Lymph # (Auto) [place] # (Auto) Eos # (Auto) Baso # (Auto) Immature Gran % Nucleated RBC % Immature Gran # Nucleated RBCs # Sodium Potassium Chloride Carbon Dioxide Anion Gap BUN Creatinine GFR Calculation BUN/Creatinine Ratio Glucose POC Glucose 137 H 138 H Hemoglobin A1c Calculated Osmolality Calcium Total Bilirubin AST ALT Alkaline Phosphatase Total Creatine Kinase CK-MB (CK-2) Troponin I Total Protein Albumin Globulin Albumin/Globulin Ratio Triglycerides Cholesterol LDL Cholesterol VLDL Cholesterol HDL Cholesterol Heart Disease Risk Ratio Free T4 TSH 3rd Generation - Imaging and Cardiology Cardiology Procedure: report reviewed by ks DS: Provider Date of admission: 04/23/17 12:12 Primary care physician: . No PCP Attending physician on admission: Cristofer Waddell Discharging clinician: Yumi Kennedy NP <French Mullins - Last Filed: 04/24/17 14:48> Hospital Course - Time spent with patient Time with patient DS: Greater than 30 minutes Diagnosis - Discharge Diagnosis (1) Bradycardia Status: Acute (2) Essential hypertension Status: Chronic (3) Coronary artery disease Status: Chronic (4) Left bundle branch block Status: Chronic (5) Fatigue Status: Acute (6) Dyspnea on exertion Status: Acute (7) Dyslipidemia Status: Chronic (8) Obstructive sleep apnea Status: Chronic Discharge Plan - Discharge Data Condition at Discharge: Stable Discharge Diet: diabetic diet Activity: other (No heavy lifting for approximately 1 week.) Hygiene: no restrictions Weight Bearing at Discharge: full weight bearing Driving: not for (24 hours and then progress if his right groin is stable.) Contact your physician if you experience:: Redness or swelling, Bleeding, pain uncontrolled by pain medications Wound / Dressing Care Instructions: Leave right groin dressing on until after first shower or bath. Patient then may remove this. Exam - Constitutional Exam: General appearance: Obese, no acute distress HEENT exam: normal inspection, atraumatic Neck exam: normal inspection no JVD. No carotid bruit. Trachea is in midline Respiratory/lungs exam: clear to auscultation bilaterally good air movement. Cardiovascular exam: regular rhythm but bradycardic, no murmur or gallop or rub. No precordial lift. Chest wall exam: nontender GI/Abdominal exam: normal bowel sounds, soft, nontender, no abdominal bruits or pulsatile masses. Extremeties/musculoskeletal: normal inspection without edema or cyanosis. His right groin is stable post catheterization. Neurological exam: alert, oriented X3, no focal deficits Psychiatric exam: normal affect, normal mood. Cognitive function is grossly normal. Skin exam: normal color, warm Discharge Results Procedures and tests throughout hospitalization: Pending Orders 04/24/17 07:18 CL heart Routine His ECG with sinus rhythm left bundle branch block that is stable. He does have sinus bradycardia. Cardiac catheterization with widely patent stents. DS: Provider Expected date of discharge: 04/24/17
[2017-04-24] MEDS ORDERED: traMADol 50 MG TABLET PO PRN (10:45)
[2017-04-24] MEDS ORDERED: CETIRIZINE 10 MG TABLET PO PRN (12:46)
[2017-04-24 15:59] VITALS: BP 146/67
[2017-04-24] MEDS: INSULIN LISPRO 100 UNIT/ML SUBCUT SCH ×3 (17:35→17:36)
[2017-04-24] MEDS ORDERED: INSULIN ASPART PROTAMINE/ASPART 70/30 100 UNIT/ML SUBCUT SCH (19:00)
[2017-04-24] MEDS ORDERED: ROSUVASTATIN 20 MG TABLET PO SCH (21:00)
[2017-04-25] MEDS ORDERED: PANTOPRAZOLE 40 MG TABLET PO SCH (09:00)
[2017-04-25] MEDS ORDERED: INSULIN ASPART PROTAMINE/ASPART 70/30 100 UNIT/ML SUBCUT SCH (09:00)
== END 2017-04-24 18:00 | disposition home or self-care (01) ==
LOC: N.EDINP 09:32 → N.ED 09:32 → N.TELES 14:33
PROVIDERS: ADMIT Internal Medicine Cardiovascular Disease; ATTEND Internal Medicine Cardiovascular Disease
PROC: CLCCHCL (ICD-10-PCS; 2017-04-24 07:45)

== ENCOUNTER 2018-03-29 08:35 | Observation (INO) ==
[2018-03-29 09:15] LABS: Basophils % 0.3 % (0.0-0.8); Eosinophils # 0.3 10*3/uL (0.0-0.87); Eosinophils % 2.4 % (0.00-10.9); Hematocrit 34.2 VOL% (42.0-52.0); Hemoglobin 11.1 GM/DL (14.0-18.0); Immature Granulocytes % 0.4 %; Immature Granulocytes Absolute 0.05 #; Lymphocytes # 1.2 10*3/uL (1.4-4.0); Lymphocytes % 9.8 % (21.2-54.2); Mean Corpuscular HGB Conc 32.5 GM/DL (32-36); Mean Corpuscular Hemoglobin 29 PG (27-34); Mean Corpuscular Volume 88.1 FL (87-102); Mean Platelet Volume 9.8 FL (9.6-12.0); Monocytes # 1.2 10*3/uL (0.11-0.8); Monocytes % 9.4 % (1.7-12.7); Neutrophils # 9.6 10*3/uL (1.4-7.4); Neutrophils % 77.7 % (38.7-73.9); Platelet Count 343 T/CUMM (130-400); Red Blood Count 3.88 MC/CUMM (3.8-5.5); Red Cell Distribution Width 14.2 % (9.3-17.3); White Blood Count 12.3 T/CUMM (4-12)
[2018-03-29 09:21] LABS: Apearance,Urine CLEAR (Clear); Bilirubin,Urine Negative (Negative); Blood, Urine Negative (Negative); Glucose,Urine (UA) 50 mg/dL (Negative); Ketones,Urine Negative (Negative); Mucus,Urine Occasional /LPF (Occasional); Nitrite,Urine Negative (Negative); Protein,Urine Negative; RBC,Urine 1 /HPF (0-4); Urine Color Yellow (Yellow); Urine Specific Gravity 1.013 (1.001-1.035); WBC,Urine <1 /HPF (0-6)
[2018-03-29 09:29] LABS: Barbiturates Screen,Urine Negative (Negative); Benzodiazepines Screen,Urine Negative (Negative); Calcium 8.1 MG/DL (8.5-10.1); Cannabinoid Screen,Urine Negative (Negative); Opiate Screen,Urine Negative (Negative); Osmolality,Calculated 284.4 MOS/KG (273-304); Phencyclidine Screen,Urine Negative (Negative); Potassium 3.6 MMOL/L (3.5-5.1)
[2018-03-29 09:34] LABS: Troponin I Only < 0.015 NG/ML (0.00-0.045)
[2018-03-29] MEDS ORDERED: NITROGLYCERIN SL 0.4 MG TABLET SL STA (09:46)
[2018-03-29] MEDS ORDERED: ASPIRIN CHEW 81 MG TABLET PO STA (10:03)
[2018-03-29] MEDS ORDERED: cefTRIAXone 1,000 MG in SODIUM CHLORIDE 0.9% 100 ML IV ONE (10:41)
[2018-03-29] MEDS ORDERED: AZITHROMYCIN INJ 500 MG in SODIUM CHLORIDE 0.9% 250 ML IV ONE (10:41)
[2018-03-29] MEDS ORDERED: NITROGLYCERIN SL 0.4 MG TABLET SL PRN (11:02)
[2018-03-29] MEDS ORDERED: ASPIRIN 325 MG TABLET PO STA (11:02)
[2018-03-29] MEDS ORDERED: ACETAMINOPHEN 325 MG TABLET PO PRN (18:28)
[2018-03-29] MEDS ORDERED: traMADol 50 MG TABLET PO PRN (18:28)
[2018-03-29] MEDS ORDERED: TERAZOSIN 1 MG CAPSULE PO SCH (21:00)
[2018-03-29] MEDS ORDERED: SOLIFENACIN 5 MG TABLET PO SCH (21:00)
[2018-03-29] MEDS ORDERED: CETIRIZINE 10 MG TABLET PO SCH (21:00)
[2018-03-29] MEDS ORDERED: INSULIN ASPART PROTAMINE/ASPART 70/30 100 UNIT/ML SUBCUT SCH (21:00)
[2018-03-29] MEDS ORDERED: TERAZOSIN 5 MG CAPSULE PO SCH (21:00)
[2018-03-29] MEDS ORDERED: FERROUS SULFATE ER 140 MG TABLET PO SCH (21:00)
[2018-03-29] MEDS ORDERED: CLOPIDOGREL 75 MG TABLET PO SCH (21:00)
[2018-03-29] MEDS ORDERED: PANTOPRAZOLE 40 MG TABLET PO SCH (21:00)
[2018-03-29] MEDS: VALSARTAN 160 MG TABLET PO SCH (21:16)
[2018-03-29] MEDS: MINOXIDIL 2.5 MG TABLET PO SCH (21:17)
[2018-03-30 08:25] VITALS: BP 170/74
[2018-03-30] MEDS ORDERED: PARoxetine 20 MG TABLET PO SCH (09:00)
[2018-03-30] MEDS ORDERED: MULTIVITAMIN (CENTRUM) TABLET PO SCH (09:00)
[2018-03-30] MEDS ORDERED: FENOFIBRIC ACID 135 MG PO SCH (09:00)
[2018-03-30] MEDS ORDERED: amLODIPine 10 MG TABLET PO SCH (09:00)
[2018-03-30] MEDS ORDERED: ASPIRIN EC 81 MG TABLET PO SCH (09:00)
[2018-03-30] MEDS ORDERED: ROSUVASTATIN 20 MG TABLET PO SCH (09:00)
[2018-03-30] MEDS ORDERED: hydroCHLOROthiazide 12.5 MG CAPSULE PO SCH (09:00)
[2018-03-30] MEDS ORDERED: CELECOXIB 200 MG CAPSULE PO SCH (09:00)
[2018-03-30] MEDS ORDERED: INSULIN ASPART PROTAMINE/ASPART 70/30 100 UNIT/ML SUBCUT SCH (09:00)
[2018-03-30] MEDS: VALSARTAN 160 MG TABLET PO SCH (09:13)
[2018-03-30] MEDS: MINOXIDIL 2.5 MG TABLET PO SCH (09:14)
== END 2018-03-30 10:39 | disposition home or self-care (01) ==
LOC: N.ED 08:35 → N.EDINP 08:35 → N.TELEN 10:36
PROVIDERS: ADMIT Internal Medicine Interventional Cardiology; ATTEND Internal Medicine Interventional Cardiology

== ENCOUNTER 2018-04-07 07:10 | Observation (INO) ==
[2018-04-07] MEDS ORDERED: ENOXAPARIN 120 MG/0.8 ML SYRINGE SUBCUT STA (07:39)
[2018-04-07] MEDS ORDERED: ASPIRIN 325 MG TABLET PO STA (07:39)
[2018-04-07 07:51] LABS: Basophils % 0.4 % (0.0-0.8); Eosinophils # 0.3 10*3/uL (0.0-0.87); Eosinophils % 3.3 % (0.00-10.9); Hemoglobin 11.4 GM/DL (14.0-18.0); Immature Granulocytes % 0.6 %; Immature Granulocytes Absolute 0.05 #; Lymphocytes # 1.5 10*3/uL (1.4-4.0); Lymphocytes % 16.7 % (21.2-54.2); Mean Corpuscular HGB Conc 31.7 GM/DL (32-36); Mean Corpuscular Hemoglobin 28 PG (27-34); Mean Corpuscular Volume 88.7 FL (87-102); Mean Platelet Volume 10.2 FL (9.6-12.0); Monocytes % 10.6 % (1.7-12.7); Neutrophils # 6.2 10*3/uL (1.4-7.4); Neutrophils % 68.4 % (38.7-73.9); Platelet Count 304 T/CUMM (130-400); Red Blood Count 4.06 MC/CUMM (3.8-5.5); Red Cell Distribution Width 14.1 % (9.3-17.3)
[2018-04-07 08:03] LABS: INR 0.9; Partial Thromboplastin Time 21.8 SECS (0-40)
[2018-04-07 08:14] LABS: Alanine Aminotransferase 29 U/L (16-61); Albumin 3.5 G/DL (3.4-5.0); Alkaline Phosphatase 49 U/L (45-117); Aspartate Amino Transferase 18 U/L (0-37); Bilirubin,Total < 0.39 MG/DL (0.2-1.0); Blood Urea Nitrogen 15 MG/DL (7-18); Glucose 247 MG/DL (74-106); Potassium 4.4 MMOL/L (3.5-5.1); Sodium 136 MMOL/L (136-145); Total Protein 6.9 G/DL (6.4-8.3); Troponin I Only < 0.015 NG/ML (0.00-0.045)
[2018-04-07] MEDS ORDERED: DOCUSATE SODIUM 100 MG CAPSULE PO PRN (09:49)
[2018-04-07] MEDS ORDERED: ZALEPLON 5 MG CAPSULE PO PRN (09:49)
[2018-04-07] MEDS ORDERED: MAGNESIUM SULF RIDER 4 GM in PREMIX 1 EACH IV PRN (09:49)
[2018-04-07] MEDS ORDERED: ONDANSETRON 4 MG/2 ML VIAL IV PRN (09:49)
[2018-04-07] MEDS ORDERED: MAGNESIUM SULF RIDER 2 GM in PREMIX 1 EACH IV PRN ×2 (09:49→09:52)
[2018-04-07] MEDS ORDERED: ACETAMINOPHEN 325 MG TABLET PO PRN ×2 (09:49→10:43)
[2018-04-07] MEDS ORDERED: POTASSIUM CHLORIDE RIDER 10 MEQ in PREMIX 1 EACH IV PRN (09:52)
[2018-04-07] MEDS ORDERED: DIAZEPAM 5 MG TABLET PO ONE (09:52)
[2018-04-07] MEDS ORDERED: diphenhydrAMINE CAP 25 MG CAPSULE PO ONE (09:52)
[2018-04-07] MEDS ORDERED: traMADol 50 MG TABLET PO PRN (09:53)
[2018-04-07] MEDS ORDERED: DIAZEPAM 5 MG TABLET PO STA (09:56)
[2018-04-07] MEDS ORDERED: SODIUM CHLORIDE 0.45% 1,000 ML IV SCH (10:00)
[2018-04-07] MEDS ORDERED: HEPARIN/NACL 0.9% 2 UNITS/ML 1,000 ML IV ONE (10:49)
[2018-04-07] MEDS ORDERED: VERAPAMIL 5 MG/2 ML VIAL ONE (10:49)
[2018-04-07] MEDS ORDERED: NITROGLYCERIN DRIP 50 MG/250 ML BOTTLE IV ONE (10:49)
[2018-04-07] MEDS ORDERED: fentaNYL 100 MCG/2 ML VIAL ONE (10:52)
[2018-04-07] MEDS ORDERED: MIDAZOLAM 2 MG/2 ML VIAL ONE (10:52)
[2018-04-07] MEDS ORDERED: ENOXAPARIN 60 MG/0.6 ML SYRINGE ONE (11:18)
[2018-04-07] MEDS ORDERED: GLUCAGON 1 MG VIAL IM PRN (11:32)
[2018-04-07] MEDS ORDERED: DEXTROSE 50% 25 GM/50 ML VIAL IV PRN (11:32)
[2018-04-07] MEDS ORDERED: FUROSEMIDE 40 MG/4 ML VIAL IV ONE (11:35)
[2018-04-07 15:02] VITALS: BP 111/52
[2018-04-07] MEDS ORDERED: INSULIN REGULAR 100 UNIT/ML SUBCUT SCH (16:30)
[2018-04-07] MEDS ORDERED: INSULIN ASPART PROTAMINE/ASPART 70/30 100 UNIT/ML SUBCUT SCH (19:00)
[2018-04-07] MEDS ORDERED: CLOPIDOGREL 75 MG TABLET PO SCH (19:00)
[2018-04-07] MEDS ORDERED: FERROUS SULFATE ER 140 MG TABLET PO SCH (19:00)
[2018-04-07] MEDS ORDERED: PANTOPRAZOLE 40 MG TABLET PO SCH (19:00)
[2018-04-07] MEDS ORDERED: SOLIFENACIN 5 MG TABLET PO SCH (19:00)
[2018-04-07] MEDS ORDERED: CETIRIZINE 10 MG TABLET PO SCH (21:00)
[2018-04-07] MEDS ORDERED: MINOXIDIL 2.5 MG TABLET PO SCH (21:00)
[2018-04-07] MEDS ORDERED: TERAZOSIN 5 MG CAPSULE PO SCH (21:00)
[2018-04-08] MEDS ORDERED: INSULIN ASPART PROTAMINE/ASPART 70/30 100 UNIT/ML SUBCUT SCH (09:00)
[2018-04-08] MEDS ORDERED: FENOFIBRATE 145 MG TABLET PO SCH (09:00)
[2018-04-08] MEDS ORDERED: ASPIRIN EC 81 MG TABLET PO SCH (09:00)
[2018-04-08] MEDS ORDERED: ROSUVASTATIN 20 MG TABLET PO SCH (09:00)
[2018-04-08] MEDS ORDERED: PARoxetine 20 MG TABLET PO SCH (09:00)
[2018-04-08] MEDS ORDERED: amLODIPine 10 MG TABLET PO SCH (09:00)
[2018-04-08] MEDS ORDERED: ISOSORBIDE MONONITRATE 30 MG TABLET PO SCH (09:00)
[2018-04-08] MEDS ORDERED: PANTOPRAZOLE 40 MG TABLET PO SCH (09:00)
[2018-04-08] MEDS ORDERED: MULTIVITAMIN (CENTRUM) TABLET PO SCH (09:00)
[2018-04-08] MEDS ORDERED: CELECOXIB 200 MG CAPSULE PO SCH (09:00)
[2018-04-08] MEDS ORDERED: hydroCHLOROthiazide 12.5 MG CAPSULE PO SCH (09:00)
== END 2018-04-07 16:55 | disposition home or self-care (01) ==
LOC: N.ED 07:10 → N.EDINP 07:10 → N.TELEN 10:21
PROVIDERS: ADMIT Internal Medicine Cardiovascular Disease; ATTEND Internal Medicine Cardiovascular Disease
PROC: CLCCHCL (ICD-10-PCS; 2018-04-07 12:15)

== ENCOUNTER 2021-02-22 18:00 | Observation (INO) ==
[2021-02-22 18:31] LABS: Basophils % 0.1 % (0.0-0.8); Hematocrit 41.8 VOL% (42.0-52.0); Hemoglobin 13.5 GM/DL (14.0-18.0); Immature Granulocytes % 0.4 %; Immature Granulocytes Absolute 0.04 #; Lymphocytes # 1.9 10*3/uL (1.4-4.0); Lymphocytes % 18.5 % (21.2-54.2); Mean Corpuscular HGB Conc 32.3 GM/DL (32-36); Mean Corpuscular Volume 87.3 FL (87-102); Mean Platelet Volume 9.6 FL (9.6-12.0); Monocytes % 12.2 % (1.7-12.7); Neutrophils % 68.8 % (38.7-73.9); Platelet Count 390 T/CUMM (130-400); Red Blood Count 4.79 MC/CUMM (3.8-5.5); Red Cell Distribution Width 14.4 % (9.3-17.3); White Blood Count 10.5 T/CUMM (4-12)
[2021-02-22 18:48] LABS: Alanine Aminotransferase 26 U/L (16-61); Albumin 3.6 G/DL (3.4-5.0); Alkaline Phosphatase 75 U/L (45-117); Aspartate Amino Transferase 17 U/L (0-37); Bilirubin,Total < 0.39 MG/DL (0.2-1.0); Blood Urea Nitrogen 16 MG/DL (7-18); Calcium 8.7 MG/DL (8.5-10.1); Carbon Dioxide 29 MMOL/L (21-32); Estimated Glom Filtration Rate 123 ML/MIN; Glucose 152 MG/DL (74-106); Sodium 136 MMOL/L (136-145); Total Protein 6.7 G/DL (6.4-8.2)
[2021-02-22] MEDS ORDERED: NITROGLYCERIN SL 0.4 MG TABLET SL PRN (20:29)
[2021-02-22] MEDS ORDERED: BENRALIZUMAB 30 MG/ML SUBCUT SCH (20:30)
[2021-02-22] MEDS ORDERED: AUTO INJECTOR SUBCUT SCH (20:30)
[2021-02-22] MEDS ORDERED: ONDANSETRON 4 MG/2 ML VIAL IV PRN (20:32)
[2021-02-22] MEDS ORDERED: GLUCAGON 1 MG VIAL IM PRN ×2 (20:32)
[2021-02-22] MEDS ORDERED: ACETAMINOPHEN 325 MG TABLET PO PRN (20:32)
[2021-02-22] MEDS ORDERED: DEXTROSE 50% 25 GM/50 ML VIAL IV PRN ×2 (20:32)
[2021-02-22] MEDS ORDERED: ENOXAPARIN 40 MG/0.4 ML SYRINGE SUBCUT SCH (21:00)
[2021-02-22] MEDS ORDERED: CLOPIDOGREL 75 MG TABLET PO SCH (21:00)
[2021-02-22] MEDS ORDERED: CETIRIZINE 10 MG TABLET PO SCH (21:00)
[2021-02-22] MEDS ORDERED: ORPHENADRINE CITRATE 100 MG PO SCH (21:00)
[2021-02-22] MEDS ORDERED: OXYBUTYNIN XL 15 MG TABLET PO SCH (21:00)
[2021-02-22 23:20] LABS: Troponin I < 0.015 NG/ML (0.00-0.045)
[2021-02-23] MEDS: SACUBITRIL/VALSARTAN 49-51 MG TABLET PO SCH ×2 (00:44→10:07)
[2021-02-23] MEDS: carvediloL 12.5 MG TABLET PO SCH ×2 (00:44→10:05)
[2021-02-23] MEDS: GABAPENTIN 300 MG CAPSULE PO SCH ×2 (00:45→10:07)
[2021-02-23 02:05] LABS: Troponin I < 0.015 NG/ML (0.00-0.045)
[2021-02-23 05:35] LABS: Basophils % 0.1 % (0.0-0.8); Eosinophils % 0.1 % (0.00-10.9); Hematocrit 39.2 VOL% (42.0-52.0); Hemoglobin 12.9 GM/DL (14.0-18.0); Immature Granulocytes % 0.5 %; Immature Granulocytes Absolute 0.04 #; Lymphocytes # 1.5 10*3/uL (1.4-4.0); Lymphocytes % 16.9 % (21.2-54.2); Mean Corpuscular HGB Conc 32.9 GM/DL (32-36); Mean Corpuscular Volume 86.5 FL (87-102); Mean Platelet Volume 9.6 FL (9.6-12.0); Monocytes % 10.5 % (1.7-12.7); Neutrophils % 71.9 % (38.7-73.9); Platelet Count 341 T/CUMM (130-400); Red Blood Count 4.53 MC/CUMM (3.8-5.5); Red Cell Distribution Width 14.6 % (9.3-17.3); White Blood Count 8.8 T/CUMM (4-12)
[2021-02-23 06:36] LABS: Albumin 3.4 G/DL (3.4-5.0); Bilirubin,Total 0.4 MG/DL (0.2-1.0); Calcium 8.9 MG/DL (8.5-10.1); Osmolality,Calculated 279.1 MOS/KG (273-304); Potassium 3.8 MMOL/L (3.5-5.1); Risk Ratio 8.09; Thyroid Stimulating Hormone 2.89 uIU/ml (0.358-3.74); Total Protein 6.7 G/DL (6.4-8.2); VLDL CHOLESTEROL 52.8 MG/DL
[2021-02-23 06:40] LABS: Troponin I < 0.015 NG/ML (0.00-0.045)
[2021-02-23] MEDS ORDERED: INSULIN ASPART PROTAMINE/ASPART 70/30 100 UNIT/ML SUBCUT SCH ×2 (08:00→17:00)
[2021-02-23] MEDS ORDERED: IMIPRAMINE 25 MG TABLET PO SCH (09:00)
[2021-02-23] MEDS ORDERED: ASPIRIN EC 325 MG TABLET PO SCH (09:00)
[2021-02-23] MEDS ORDERED: TERAZOSIN 10 MG CAPSULE PO SCH (09:00)
[2021-02-23] MEDS ORDERED: PANTOPRAZOLE 40 MG TABLET PO SCH (09:00)
[2021-02-23] MEDS ORDERED: FUROSEMIDE 40 MG TABLET PO SCH (09:00)
[2021-02-23] MEDS ORDERED: ISOSORBIDE MONONITRATE 60 MG TABLET PO SCH (09:00)
[2021-02-23] MEDS ORDERED: SPIRONOLACTONE 25 MG TABLET PO SCH (09:00)
[2021-02-23] MEDS ORDERED: ASPIRIN EC 81 MG TABLET PO SCH (09:30)
[2021-02-23] MEDS ORDERED: NF- (Fluticasone Furoate-Vilanterol [Breo Ellipta] 200-25 mcg/dose Bl INH SCH (09:30)
[2021-02-23 11:23] VITALS: BP 153/97
[2021-02-23] MEDS ORDERED: LIDOCAINE 5% PATCH TRANSDERM SCH (14:00)
[2021-02-23] MEDS ORDERED: DULoxetine 30 MG CAPSULE PO SCH (17:00)
[2021-02-23] MEDS ORDERED: MULTIVITAMIN (CENTRUM) TABLET PO SCH (21:00)
[2021-02-23] MEDS ORDERED: ROSUVASTATIN 20 MG TABLET PO SCH (21:00)
[2021-02-23] MEDS ORDERED: EZETIMIBE 10 MG TABLET PO SCH (21:00)
[2021-02-26] MEDS ORDERED: FERROUS SULFATE 325 MG TABLET PO SCH (09:19)
== END 2021-02-23 14:50 | disposition home or self-care (01) ==
LOC: N.EDINP 18:00 → N.ED 18:00 → N.EDINP 22:10 → N.TELEN 22:31
PROVIDERS: ADMIT Family Medicine; ATTEND Family Medicine